=== PATIENT | male | born 1940 | race Caucasian/White ===

== ENCOUNTER 2021-12-07 10:39 | Emergency (ER) | payer MEDICARE ==
[~2021-12-07] VITALS: Ht 188 cm; Wt 113.9 kg
[~2021-12-07 10:39] MED LIST: ATRIN IH; DABI150C PO; DICL75TA5 PO; FLUO20CA39 PO; FURO-150 PO; HYDR5SUS PO; NORCO10T PO; Prednisone PO; TRAZ-89 PO
--- NOTE | 2021-12-07 10:47 | NUR ---
DR AKINS MADE AWARE OF PATIENT STATUS.
--- NOTE | 2021-12-07 11:00 | NUR ---
Pt to CT
--- NOTE | 2021-12-07 11:09 | NUR ---
Pt back from CT
[2021-12-07 11:19] VITALS: BP 144/80
== END 2021-12-07 11:48 | disposition home or self-care (01) ==
LOC: ER 10:40
DX: S09.90XA Unspecified injury of head, initial encounter (principal); S00.211A Abrasion of right eyelid and periocular area, initial encounter; R06.02 Shortness of breath; I48.91 Unspecified atrial fibrillation; I10 Essential (primary) hypertension; Z95.0 Presence of cardiac pacemaker; Z98.890 Other specified postprocedural states; Z79.899 Other long term (current) drug therapy; W01.0XXA Fall on same level from slipping, tripping and stumbling without subsequent striking against object, initial encounter; Y93.89 Activity, other specified; Y92.89 Other specified places as the place of occurrence of the external cause; Y99.8 Other external cause status
CPT/HCPCS: 70450; 72125; 99284